=== PATIENT | female | born 1980 | race African-American/Black ===

== ENCOUNTER 2017-01-19 13:48 | Emergency (ER) | payer SELFPAY ==
[~2017-01-19] VITALS: Ht 165.1 cm; Wt 63.0 kg
[~2017-01-19 13:48] MED LIST: AMOX500T PO; Z.0.NO CURRENT MEDS
[2017-01-19 13:49] VITALS: BP 162/92; PULSE 96; RESP 20; TEMP 98.7; O2SAT 99
[2017-01-19 14:10] VITALS: BP 158/99; PULSE 88; RESP 16; O2SAT 100
--- NOTE | 2017-01-19 14:30 | PD ---
HPI Chief Complaint: Oncology Social Work Problem/Complaint Time Seen by Provider: 14:26 Travel History International Travel<30 days: No Contact w/Intl Traveler<30days: No Traveled to known affect area: No History of Present Illness HPI 37-year-old G0 female presents to the ED for evaluation of irregular periods. The patient states that as an adult she normally has seven-day periods. She states that the first 4 days are heavy bleeding with 3 days of light bleeding. She states that she had a normal period in early December. She states that at the end of December she had 2 days of spotting with 2 days of heavy bleeding. She states that on 14 January she began another normal period. She endorses feeling "very tired." But she denies dizziness, lightheadedness, chest pain, palpitations, shortness of breath, dysuria, back pain, vaginal discharge, vaginal odor. She endorses 3 episodes of unprotected sex with a single male partner during this time. PFSH Past Medical History Diminished Hearing: No Hypertension: Yes Integumentary: Yes (RECURRENT ALLERGIC REACTIONS) Migraines: Yes Tetanus Vaccination: < 5 Years Influenza Vaccination: No ?: Not LMP: 12/20/16 : 0 Para: 0 Miscarriage: 0 : 0 Past Surgical History Surgical History: No Previous Surgery Social History Alcohol Use: No Tobacco Use: Yes (LESS THAN 1/2 PPD SINCE AGE 19) Substance Use: No Allergies-Medications (Allergen,Severity, Reaction): Coded Allergies: Food Additives (Verified Allergy, Mild, 01/19/17) Reported Meds & Prescriptions Reported Meds & Active Scripts Active No Active Prescriptions or Reported Medications Review of Systems Except as stated in HPI: all other systems reviewed are Neg Physical Exam Narrative GENERAL: Well-nourished, well-developed female in no acute distress. SKIN: Focused skin assessment warm/dry. HEAD: Normocephalic. EYES: No scleral icterus. No injection or drainage. NECK: Supple, trachea midline. No JVD or lymphadenopathy. CARDIOVASCULAR: Regular rate and rhythm without murmurs, gallops, or rubs. RESPIRATORY: Breath sounds clear and equal bilaterally. No accessory muscle use. GASTROINTESTINAL: Abdomen soft, non-tender, nondistended. Active bowel sounds. MUSCULOSKELETAL: No cyanosis, or edema. BACK: Nontender without obvious deformity. No CVA tenderness. Data Data Last Documented VS Vital Signs Date Time Temp Pulse Resp B/P Pulse Ox O2 Delivery O2 Flow Rate FiO2 01/19/17 14:10 88 16 158/99 100 Room Air 01/19/17 13:49 98.7 Orders Complete Blood Count With Diff (01/19/17 14:25) Urinalysis - C+S If Indicated (01/19/17 14:25) Ed Urine Pregnancytest Poc (01/19/17 14:25) Basic Metabolic Panel (Bmp) (01/19/17 14:25) Labs Laboratory Tests Test 01/19/17 01/19/17 14:30 14:35 Urine Color YELLOW Urine Turbidity CLEAR Urine pH 5.5 Urine Specific [place] 1.025 Urine Protein NEG mg/dL Urine Glucose (UA) NEG mg/dL Urine Ketones NEG mg/dL Urine Occult Blood NEG Urine Nitrite NEG Urine Bilirubin NEG Urine Urobilinogen LESS THAN 2.0 MG/DL Urine Leukocyte Esterase NEG Urine RBC LESS THAN 1 /hpf Urine WBC 2 /hpf Urine Squamous Epithelial <1 /hpf Cells Urine Mucus FEW /lpf Microscopic Urinalysis Comment CULT NOT INDICATED White Blood Count 5.6 TH/MM3 Red Blood Count 4.96 MIL/MM3 Hemoglobin 13.5 GM/DL Hematocrit 41.9 % Mean Corpuscular Volume 84.4 FL Mean Corpuscular Hemoglobin 27.2 PG Mean Corpuscular Hemoglobin 32.2 % Concent Red Cell Distribution Width 13.6 % Platelet Count 284 TH/MM3 Mean Platelet Volume 7.4 FL Neutrophils (%) (Auto) 70.5 % Lymphocytes (%) (Auto) 16.6 % Monocytes (%) (Auto) 10.0 % Eosinophils (%) (Auto) 1.8 % Basophils (%) (Auto) 1.1 % Neutrophils # (Auto) 3.9 TH/MM3 Lymphocytes # (Auto) 0.9 TH/MM3 Monocytes # (Auto) 0.6 TH/MM3 Eosinophils # (Auto) 0.1 TH/MM3 Basophils # (Auto) 0.1 TH/MM3 CBC Comment DIFF FINAL Differential Comment Sodium Level 137 MEQ/L Potassium Level 3.8 MEQ/L Chloride Level 108 MEQ/L Carbon Dioxide Level 22.8 MEQ/L Anion Gap 6 MEQ/L Blood Urea Nitrogen 15 MG/DL Creatinine 0.79 MG/DL Estimat Glomerular Filtration 100 ML/MIN Rate Random Glucose 90 MG/DL Calcium Level 8.5 MG/DL [facility] Medical Decision Making Medical Screen Exam Complete: Yes Emergency Medical Condition: Yes Differential Diagnosis Abnormal uterine bleeding versus anemia versus versus other Narrative Course 37-year-old G0 female presents to the ED for evaluation of irregular periods. The patient states that as an adult she normally has seven-day periods. She states that the first 4 days are heavy bleeding with 3 days of light bleeding. She states that she had a normal period in early December. She states that at the end of December she had 2 days of spotting with 2 days of heavy bleeding. She states that on 14 January she began another normal period. She endorses feeling "very tired." But she denies dizziness, lightheadedness, chest pain, palpitations, shortness of breath, dysuria, back pain, vaginal discharge, vaginal odor. She endorses 3 episodes of unprotected sex with a single male partner during this time. Vitals reviewed. Physical exam reveals a nontoxic- appearing after marking female in no acute distress. Abdominal exam is completely benign. ED urine test negative. No anemia noted on the CBC. BMP within normal limits. UA without evidence for culture. This is menometrorrhagia. The patient is provided outpatient resources and instructed to follow-up with the hoop maker helper machine. She is stable and discharged home. Diagnosis Primary Impression: Abnormal uterine bleeding Additional Impression: Menometrorrhagia Referrals: [facility] Patient Instructions: Dysfunctional Uterine Bleeding (ED), General Instructions Additional Instructions: Rest, hydrate. Return to normal, gentle activity as tolerated. Follow-up with the hoop maker helper machine on an outpatient basis for further evaluation of irregular periods. Return to the ED for any urgent or emergent medical condition. Scripts No Active Prescriptions or Reported Meds Disposition: 01 DISCHARGE HOME Condition: Stable Felicia Child Jan 19, 2017 14:30
[2017-01-19 15:04] LABS: AUTOMATED NEUTROPHIL # 3.9 TH/MM3 (1.8-7.7); BASOPHIL # 0.1 TH/MM3 (0-0.2); BASOPHIL % 1.1 % (0.0-2.0); EOSINOPHIL # 0.1 TH/MM3 (0-0.4); EOSINOPHIL % 1.8 % (0.0-4.0); HEMATOCRIT 41.9 % (35.0-46.0); HEMO FLAGS DIFF FINAL; LYMPH % 16.6 % (9.0-44.0); LYMPHOCYTE # 0.9 TH/MM3 (1.0-4.8); MEAN CELL VOLUME 84.4 FL (80.0-100.0); MEAN CORPUSCULAR HEMOGLOBIN 27.2 PG (27.0-34.0); MEAN CORPUSCULAR HGB CONC 32.2 % (32.0-36.0); NEUT % 70.5 % (16.0-70.0); PLATELET COUNT 284 TH/MM3 (150-450); RED BLOOD COUNT 4.96 MIL/MM3 (4.00-5.30); RED CELL DISTRIBUTION WIDTH 13.6 % (11.6-17.2); WHITE BLOOD COUNT 5.6 TH/MM3 (4.0-11.0)
[2017-01-19 15:04] LABS: BLOOD, URINE NEG (NEG); COMMENT (UR) CULT NOT INDICATED; CULTURE IF INDICATED CULT NOT INDICATED; GLUCOSE,URINE NEG (NEG); KETONE, URINE NEG (NEG); MUCUS URINE FEW /lpf (OCC); NITRITE,URINE NEG (NEG); PH, URINE 5.5 (5.0-8.5); SQUAMOUS EPITHELIAL CELL URINE <1 /hpf (0-5); URINE COLOR YELLOW (YELLW/STRAW)
[2017-01-19 15:29] LABS: BICARBONATE 22.8 MEQ/L (21.0-32.0); POTASSIUM 3.8 MEQ/L (3.5-5.1)
== END 2017-01-19 16:11 | disposition home or self-care (01) ==
LOC: NEPC 13:48
DX: N93.9 Abnormal uterine and vaginal bleeding, unspecified (principal); N92.1 Excessive and frequent menstruation with irregular cycle; I10 Essential (primary) hypertension; Z72.0 Tobacco use
CPT/HCPCS: 80048; 81001; 84703; 85025; 99283

== ENCOUNTER 2017-08-10 18:04 | Emergency (ER) | payer SELFPAY ==
[~2017-08-10] VITALS: Ht 165.1 cm; Wt 60.0 kg
[2017-08-10 18:13] VITALS: BP 157/61; PULSE 84; RESP 20; O2SAT 95
[2017-08-10] MEDS ORDERED: predniSONE 50 MG TAB PO ONE (20:00)
[2017-08-10] MEDS: RESP: ALBUTEROL 2.5 MG/IPRATROPIUM 0.5 MG NEB (SCH) INH (20:07)
--- NOTE | 2017-08-10 20:18 | RADRPT ---
EXAM DATE/TIME: 08/10/2017 19:59 [facility] COMPARISON: No previous studies available for comparison. INDICATIONS : Cough, shortness of breath, and chest pain for two days. MEDICAL HISTORY : Smoker. SURGICAL HISTORY : None. ENCOUNTER: Initial ACUITY: 2 days PAIN SCORE: 9/10 LOCATION: Bilateral chest FINDINGS: PA and lateral views of the chest demonstrate the lungs to be symmetrically aerated without evidence of mass, infiltrate or effusion. The cardiomediastinal contours are unremarkable. Osseous structure s are intact. CONCLUSION: Normal examination. Amol Mcconnell MD on August 10, 2017 at 20:16 Board Certified Radiologist. This report was verified electronically.
--- NOTE | 2017-08-10 20:33 | PD ---
HPI Chief Complaint: Cold / Flu Symptoms Time Seen by Provider: 19:46 Travel History International Travel<30 days: No Contact w/Intl Traveler<30days: No Traveled to known affect area: No History of Present Illness HPI Patient is a 37 year old female who comes in complaining of cough and SOB. She says this has been going on for the past 2 days. She says her son is sick with similar symptoms. She does not know if she has had fever. She reports cough and congestion. She denies any pains. She is a smoker. She denies nausea or vomiting. She has not taken anything for her symptoms. Severity is mild to moderate. PFSH Past Medical History Medical History: Denies Significant Hx Diminished Hearing: No Hypertension: Yes Integumentary: Yes (RECURRENT ALLERGIC REACTIONS) Migraines: Yes ?: Not LMP: 08/10/17 : 0 Para: 0 Miscarriage: 0 : 0 Past Surgical History Surgical History: No Previous Surgery Social History Alcohol Use: No Tobacco Use: Yes (LESS THAN 1/2 PPD SINCE AGE 19) Substance Use: No Allergies-Medications (Allergen,Severity, Reaction): Coded Allergies: Food Additives (Verified Allergy, Mild, 08/10/17) Reported Meds & Prescriptions Reported Meds & Active Scripts Active Prednisone 50 Mg Tab 50 Mg PO DAILY 4 Days Ventolin Hfa 18 GM Inh (Albuterol Sulfate) 90 Mcg/Act Aer 2 Puff INH Q4-6H PRN Review of Systems General / Constitutional: No: Fever, Chills HENT: No: Headaches, Lightheadedness Cardiovascular: No: Chest Pain or Discomfort Respiratory: Positive: Cough, Shortness of Breath Gastrointestinal: No: Nausea, Vomiting Musculoskeletal: No: Myalgias, Edema Skin: No Rash, No Change in Pigmentation Neurologic: No: Weakness, Dizziness Physical Exam Narrative GENERAL: Awake and alert, in no acute distress. SKIN: Focused skin assessment warm/dry. No wounds or signs of infection. HEAD: Atraumatic. Normocephalic. EYES: Pupils equal and round. No scleral icterus. ENT: Mucous membranes pink and moist. NECK: Trachea midline. No JVD. CARDIOVASCULAR: Regular rate and rhythm. No murmur appreciated. RESPIRATORY: No accessory muscle use. Diffuse wheezing. Breath sounds equal bilaterally. MUSCULOSKELETAL: No obvious deformities. No clubbing. No cyanosis. No edema. NEUROLOGICAL: Awake and alert. No obvious cranial nerve deficits. Motor grossly within normal limits. Normal speech. Data Data Last Documented VS Vital Signs Date Time Temp Pulse Resp B/P (MAP) Pulse Ox O2 Delivery O2 Flow Rate FiO2 08/10/17 18:13 84 20 157/61 (93) 95 Orders Orders Influenzae A/B Antigen (08/10/17 19:49) Chest, Pa & Lat (08/10/17 19:49) Albuterol-Ipratropium Neb (Duoneb Neb) (08/10/17 20:00) Prednisone (Deltasone) (08/10/17 20:00) Ed Discharge Order (08/10/17 21:36) [facility] Medical Decision Making Medical Screen Exam Complete: Yes Emergency Medical Condition: Yes Medical Record Reviewed: Yes Differential Diagnosis URI vs influenza vs pneumonia vs bronchitis Narrative Course Patient is a 37 year old female who comes in complaining of cough and SOB. Exam shows bilateral wheezing. Patient given 3 duonebs and prednisone. CXR performed shows no acute abnormalities. Influenza swab is negative. Lung sounds improved after treatment. Last 24 hours Impressions Chest X-Ray 08/10/171948 Signed Impressions: Service Date/Time: Thursday, August 10, 2017 19:59 - CONCLUSION: Normal examination. Amol Mcconnell MD Patient will be discharged with prescription for Albuterol and Prednisone. Advised to quit smoking. Advised to follow up with a primary care doctor. Advised to return to the ED as needed for any worsening symptoms. Diagnosis Primary Impression: URI (upper respiratory infection) Qualified Codes: J06.9 - Acute upper respiratory infection, unspecified Additional Impression: Bronchitis Referrals: [facility] call for appointment Patient Instructions: Acute Bronchitis (ED), General Instructions Additional Instructions: Use the albuterol as needed for shortness of breath and cough. Take the Prednisone starting tomorrow as you had a dose today. Follow up with a primary care doctor. Return to the ED as needed for any worsening symptoms. Scripts Prednisone (Prednisone) 50 Mg Tab 50 MG PO DAILY for 4 Days, #4 TAB 0 Refills Prov: Annetta Hickman MD 08/10/17 Albuterol 18 GM Inh (Ventolin Hfa 18 GM Inh) 90 Mcg/Act Aer 2 PUFF INH Q4-6H Y for SHORTNESS OF BREATH, #1 INHALER 0 Refills Prov: Annetta Hickman MD 08/10/17 Disposition: 01 DISCHARGE HOME Condition: Stable Annetta Hickman MD Aug 10, 2017 20:33
[2017-08-10] MEDS ORDERED: VENTAER INH (21:35)
[2017-08-10] MEDS ORDERED: PRED50 PO (21:35)
== END 2017-08-10 21:59 | disposition home or self-care (01) ==
LOC: NEPD 18:04
DX: J06.9 Acute upper respiratory infection, unspecified (principal); J40 Bronchitis, not specified as acute or chronic; I10 Essential (primary) hypertension; F17.200 Nicotine dependence, unspecified, uncomplicated; Z79.899 Other long term (current) drug therapy
CPT/HCPCS: 71046; 87804; 94640; 94664; 99284; J7512